=== PATIENT | female | born 1995 ===

== ENCOUNTER 2017-12-10 20:14 | Emergency (ER) | payer SELFPAY ==
[2017-12-10 20:25] VITALS: BP 125/91
== END 2017-12-10 21:10 | disposition left against medical advice (07) ==
LOC: ED 20:14
DX: R51 Headache (principal); Z53.21 Procedure and treatment not carried out due to patient leaving prior to being seen by health care provider

== ENCOUNTER 2018-01-26 17:04 | Emergency (ER) | payer SELFPAY ==
[2018-01-26 17:11] VITALS: BP 133/82
[2018-01-26 17:41] LABS: HCG Qualitative,Urine Negative (Negative)
[2018-01-26 17:43] LABS: Amorphous Crystals,Urine 1+; Bacteria,Urine 1+ /HPF (Negative); Bilirubin,Urine NEG (Negative); Blood,Urine NEG (Negative); Mucus,Urine 3+ /HPF; Urobilinogen,Urine < 2.0 mg/dL (<2.0)
[2018-01-26 17:48] LABS: Color,Urine Yellow (Yellow)
== END 2018-01-26 19:57 | disposition left against medical advice (07) ==
LOC: ED 17:04
DX: R10.30 Lower abdominal pain, unspecified (principal); Z53.21 Procedure and treatment not carried out due to patient leaving prior to being seen by health care provider
CPT/HCPCS: 81001; 81025